=== PATIENT | female | born 1960 | race Caucasian/White ===

== ENCOUNTER 2017-07-20 10:28 | Outpatient (CLI) | payer SELFPAY | END 2017-07-20 10:29 | disposition home or self-care (01) | LOC: BICRAD 10:28 | PROVIDERS: ATTEND Internal Medicine | DX: M25.512 Pain in left shoulder (principal); M79.672 Pain in left foot; M19.012 Primary osteoarthritis, left shoulder; M19.072 Primary osteoarthritis, left ankle and foot ==

== ENCOUNTER 2017-08-11 09:02 | Outpatient (CLI) | payer SELFPAY | END 2017-08-11 09:03 | disposition home or self-care (01) | LOC: BICMAMMO 09:02 | PROVIDERS: ATTEND Internal Medicine | DX: Z12.31 Encounter for screening mammogram for malignant neoplasm of breast (principal) | CPT/HCPCS: 77063; 77067 ==

== ENCOUNTER 2018-08-23 10:38 | Outpatient (CLI) | payer BC ==
--- NOTE | 2018-08-23 11:19 | MMO ---
Bilateral MAMMO Bilat Screen [facility]. CLINICAL HISTORY: Patient is 58 years old and is seen for screening. The patient has no family history of breast cancer. The patient has no personal history of cancer. VIEWS: The views performed were: bilateral craniocaudal with tomosynthesis and bilateral mediolateral oblique with tomosynthesis. FILMS COMPARED: The present examination has been compared to prior imaging studies performed at [facility] on 08/11/2017, and at [facility] on 10/10/2012, 06/29/2013, 10/30/2013 and 01/09/2015. MAMMOGRAM FINDINGS: There are scattered fibroglandular densities. There are no suspicious masses, suspicious calcifications, or new areas of architectural distortion. IMPRESSION: THERE IS NO MAMMOGRAPHIC EVIDENCE OF MALIGNANCY. A ROUTINE FOLLOW-UP MAMMOGRAM IN 1 YEAR IS RECOMMENDED. THE RESULTS OF THIS EXAM WERE SENT TO THE PATIENT. ACR BI-RADS Category 1 - Negative MAMMOGRAPHY NOTE: 1. A negative mammogram report should not delay a biopsy if a dominant of clinically suspicious mass is present. 2. Approximately 10% to 15% of breast cancers are not detected by mammography. 3. Adenosis and dense breasts may obscure an underlying neoplasm.
== END 2018-08-23 10:39 | disposition home or self-care (01) ==
LOC: BICMAMMO 10:38
PROVIDERS: ATTEND Internal Medicine
DX: Z12.31 Encounter for screening mammogram for malignant neoplasm of breast (principal)
CPT/HCPCS: 77063; 77067

== ENCOUNTER 2019-04-27 01:51 | Emergency (ER) | payer BC ==
[2019-04-27] MEDS ORDERED: Proparacaine 0.5% Opth 15 ML BOT ONE (02:55)
[2019-04-27] MEDS ORDERED: Fluorescein Opthalmic Strip ONE (02:55)
== END 2019-04-27 03:48 | disposition home or self-care (01) ==
LOC: ERS 01:51
DX: H11.421 Conjunctival edema, right eye (principal); H10.11 Acute atopic conjunctivitis, right eye
CPT/HCPCS: 99283

== ENCOUNTER 2019-11-03 08:35 | Outpatient (CLI) | payer BC ==
--- NOTE | 2019-11-03 09:51 | MMO ---
Bilateral MAMMO Bilat Screen [facility]. CLINICAL HISTORY: Patient is 59 years old and is seen for screening. The patient has no family history of breast cancer. The patient has no personal history of cancer. VIEWS: The views performed were: bilateral craniocaudal with tomosynthesis and bilateral mediolateral oblique with tomosynthesis. FILMS COMPARED: The present examination has been compared to prior imaging studies performed at [facility] on 08/11/2017 and 08/23/2018, and at [facility] on 10/30/2013 and 01/09/2015. This study has been interpreted with the assistance of computer-aided detection. MAMMOGRAM FINDINGS: There are scattered fibroglandular densities. There are no suspicious masses, suspicious calcifications, or new areas of architectural distortion. IMPRESSION: THERE IS NO MAMMOGRAPHIC EVIDENCE OF MALIGNANCY. A ROUTINE FOLLOW-UP MAMMOGRAM IN 1 YEAR IS RECOMMENDED. THE RESULTS OF THIS EXAM WERE SENT TO THE PATIENT. ACR BI-RADS Category 1 - Negative MAMMOGRAPHY NOTE: 1. A negative mammogram report should not delay a biopsy if a dominant of clinically suspicious mass is present. 2. Approximately 10% to 15% of breast cancers are not detected by mammography. 3. Adenosis and dense breasts may obscure an underlying neoplasm. Reported by: JR RAMAN MD Electonically Signed: [id number]
== END 2019-11-03 08:36 | disposition home or self-care (01) ==
LOC: BICMAMMO 08:35
PROVIDERS: ATTEND Internal Medicine
DX: Z12.31 Encounter for screening mammogram for malignant neoplasm of breast (principal)
CPT/HCPCS: 77063; 77067

== ENCOUNTER 2021-01-22 15:52 | Outpatient (CLI) | payer BC | END 2021-01-22 15:53 | disposition home or self-care (01) | LOC: BICMAMMO 15:52 | PROVIDERS: ATTEND Internal Medicine | DX: Z12.31 Encounter for screening mammogram for malignant neoplasm of breast (principal) | CPT/HCPCS: 77063; 77067 ==

== ENCOUNTER 2021-10-15 08:50 | Outpatient (CLI) | payer BC | END 2021-10-15 08:51 | disposition home or self-care (01) | LOC: BICULT 08:50 | PROVIDERS: ATTEND Internal Medicine | DX: R10.13 Epigastric pain (principal) | CPT/HCPCS: 76700 ==

== ENCOUNTER 2021-10-23 07:58 | Outpatient (CLI) | payer BC | END 2021-10-23 07:59 | disposition home or self-care (01) | LOC: SCSMRI 07:58 | PROVIDERS: ATTEND Internal Medicine | DX: K83.8 Other specified diseases of biliary tract (principal) | CPT/HCPCS: 74181 ==

== ENCOUNTER 2021-11-07 13:22 | Outpatient (CLI) | payer BC | END 2021-11-07 13:23 | disposition home or self-care (01) | LOC: LABBT 13:22 | PROVIDERS: ATTEND Internal Medicine Gastroenterology | DX: K83.1 Obstruction of bile duct (principal); R10.13 Epigastric pain; R11.0 Nausea; Z20.822 Contact with and (suspected) exposure to COVID-19 | CPT/HCPCS: 87811 ==

== ENCOUNTER 2021-11-12 11:54 | Day surgery (SDC) | payer BC ==
[2021-11-11 10:00] VITALS: BMI 25.2
[2021-11-12] MEDS ORDERED: fentaNYL Citrate/PF 100 MCG/2 ML SYRINGE ONE (12:30)
[2021-11-12] MEDS ORDERED: Indomethacin 50 MG SUPP ONE (12:37)
[2021-11-12] MEDS ORDERED: Iopamidol 0 ML ONE (13:08)
== END 2021-11-12 14:57 | disposition home or self-care (01) ==
LOC: SDC 11:54
PROVIDERS: ATTEND Internal Medicine Gastroenterology
DX: K83.1 Obstruction of bile duct (principal); R11.0 Nausea; R10.13 Epigastric pain; Z53.9 Procedure and treatment not carried out, unspecified reason; Z79.899 Other long term (current) drug therapy
CPT/HCPCS: Q9967

== ENCOUNTER 2021-12-12 13:30 | Outpatient (CLI) | payer BC | END 2021-12-12 13:31 | disposition home or self-care (01) | LOC: LABBT 13:30 | PROVIDERS: ATTEND Internal Medicine Gastroenterology | DX: Z20.822 Contact with and (suspected) exposure to COVID-19 (principal) | CPT/HCPCS: 87811 ==

== ENCOUNTER 2021-12-15 07:57 | Day surgery (SDC) | payer BC ==
[2021-12-12 11:53] VITALS: BMI 25.2
[2021-12-15] MEDS ORDERED: Indomethacin 50 MG SUPP ONE (09:28)
[2021-12-15] MEDS ORDERED: Iopamidol 30 ML ONE (09:30)
[2021-12-15] MEDS ORDERED: Fentanyl 100 MCG/2 ML VIAL ONE ×2 (09:55)
[2021-12-15] MEDS ORDERED: Famotidine/PF 20 mg/2ml Vial ONE (09:55)
[2021-12-15] MEDS ORDERED: Dexamethasone 20 MG/5 ML VIAL ONE (10:18)
[2021-12-15] MEDS ORDERED: Ondansetron PF 4 MG/2 ML Vial ONE (10:18)
[2021-12-15] MEDS ORDERED: Lidocaine 1% MPF 2 ML VIAL ONE (10:18)
[2021-12-15] MEDS ORDERED: Glycopyrrolate 0.2 MG/ML 5 ML SYRINGE ONE (10:18)
[2021-12-15] MEDS ORDERED: Neostigmine Methylsulfate 3 MG/3 ML SYRINGE ONE (10:18)
[2021-12-15] MEDS ORDERED: Rocuronium Bromide 10 MG/ML (10ML VIAL) ONE (10:18)
[2021-12-15] MEDS ORDERED: PROPOFOL 200 MG/20 ML VIAL ONE (10:18)
== END 2021-12-15 13:38 | disposition home or self-care (01) ==
LOC: SDC 07:57
PROVIDERS: ATTEND Internal Medicine Gastroenterology
PROC: 0F798ZZ Dilation of Common Bile Duct, Via Natural or Artificial Opening Endoscopic (ICD-10-PCS; principal; 2021-12-15)
DX: K83.1 Obstruction of bile duct (principal); K21.9 Gastro-esophageal reflux disease without esophagitis; Z79.899 Other long term (current) drug therapy
CPT/HCPCS: 74330; J1100; J1610; J2405; J2704; J3010; Q9967; S0028

== ENCOUNTER 2022-02-12 13:42 | Outpatient (CLI) | payer BC | END 2022-02-12 13:43 | disposition home or self-care (01) | LOC: BICMAMMO 13:42 | PROVIDERS: ATTEND Internal Medicine | DX: Z12.31 Encounter for screening mammogram for malignant neoplasm of breast (principal) | CPT/HCPCS: 77063; 77067 ==

== ENCOUNTER 2022-06-01 22:15 | Inpatient (IN) | payer BC ==
[2022-06-01 22:58] LABS: Bacteria/HPF None Seen HPF (None Seen); Bilirubin Negative (Negative); Blood, Urine Negative (Negative); Clarity Clear (Clear); Glucose, Urine (Dipstick) Normal (Negative); Ketone, Urine Negative (Negative); Leukocyte 25 Leu/uL (Negative); Nitrite Negative (Negative); Protein, Urine (Dipstick) 10 mg/dL (Neg-Trace); RBC/HPF 0-3 HPF (0-3); Specific Gravity, Urine 1.031 (1.002-1.036); Squamous Epithelial 0-3 HPF (0-3); Urobilinogen Normal mg/dL (Less than 2); WBC/HPF 0-3 HPF (0-3); pH, Urine 5.5 (5.0-9.0)
[2022-06-01 23:22] LABS: #Basophils 0.1 thou/uL (0.0-0.2); #Eosinphils 0.1 thou/uL (0.0-0.7); #Lymphocytes 1.8 thou/uL (1.20-3.40); #Neutrophils 9.6 thou/uL (1.40-6.50); %Basophils 0.4 % (0.0-1.0); %Eosinophils 0.7 % (0.0-10.0); %Lymphocytes 14.4 % (21.0-51.0); %Monocytes 7.7 % (0.0-10.0); %Neutrophils 76.9 % (42.0-75.0); Hemoglobin 14.2 g/dL (12.0-16.0); Mean Corpuscular HGB CONC 33.8 g/dL (32.0-36.0); Mean Corpuscular Hemoglobin 32.2 pg (27.0-31.0); Mean Corpuscular Volume 95.3 fl (78.0-98.0); Mean Platelet Volume 8.2 fL (7.4-10.4); Platelet Count 181 10x3/uL (130-400); RBC Distribution Width 10.8 % (11.5-14.5); White Blood Cell (WBC) Count 12.5 10x3/uL (4.8-10.8)
[2022-06-01 23:44] LABS: ALT (SGPT) 15 U/L (8-55); AST (SGOT) 18 U/L (5-34); Albumin 4.2 g/dL (3.4-4.8); Alkaline Phosphatase 76 U/L (40-110); Anion Gap 16 mmol/L (10-20); BUN (Urea Nitrogen) 10 mg/dL (9.8-20.1); Bilirubin, Total 1.2 mg/dL (0.2-1.2); Calc. Creatinine Clearance 0 mL/min (70-130); Calcium 9.4 mg/dL (7.8-10.44); Carbon Dioxide 23 mmol/L (23-31); Chloride 101 mmol/L (98-107); Estimated GFR 70; Globulin 3.2 g/dL (2.4-3.5); Glucose 116 mg/dL (80-115); Lipase 12 U/L (8-78); Potassium 3.5 mmol/L (3.5-5.1); Protein, Total 7.4 g/dL (5.8-8.1); Sodium 136 mmol/L (136-145)
[2022-06-01] MEDS ORDERED: Morphine 4 MG/ML VIAL ONE (23:44)
[2022-06-01] MEDS ORDERED: Ondansetron PF 4 MG/2 ML Vial ONE (23:44)
[2022-06-02] MEDS ORDERED: Morphine 4 MG/ML VIAL ONE (01:02)
[2022-06-02] MEDS ORDERED: Ondansetron ODT 4 MG TAB PO PRN (02:45)
[2022-06-02] MEDS ORDERED: Bisacodyl 5 MG TAB PO PRN (02:45)
[2022-06-02] MEDS ORDERED: Senokot S 8.6-50 MG TAB PO PRN (02:45)
[2022-06-02] MEDS ORDERED: Dextrose 5 %-0.45 % NaCl 1,000 ML IV SCH (03:00)
[2022-06-02] MEDS ORDERED: HYDROcodone/Acetaminophen 5/325 mg Tablet ONE ×2 (03:25→12:10)
[2022-06-02] MEDS ORDERED: Ondansetron ODT 4 MG TAB ONE (03:25)
[2022-06-02 03:39] VITALS: BMI 22.9
[2022-06-02] MEDS: HYDROcodone/Acetaminophen 5/325 mg Tablet PO PRN ×2 (03:40→12:15)
[2022-06-02] MEDS ORDERED: Piperacillin/Tazobactam 3.375 GM VIAL ONE ×2 (07:01→14:59)
[2022-06-02] MEDS: Piperacillin/Tazobactam 3.375 GM in Sodium Chloride 0.9% 100 ML IVPB SCH ×2 (07:07→14:52)
[2022-06-02 07:30] LABS: #Lymphocytes 1.3 thou/uL (1.20-3.40); #Monocytes 0.7 thou/uL (0.11-0.59); #Neutrophils 13.2 thou/uL (1.40-6.50); %Basophils 0.1 % (0.0-1.0); %Eosinophils 0.2 % (0.0-10.0); %Lymphocytes 8.2 % (21.0-51.0); %Monocytes 4.5 % (0.0-10.0); %Neutrophils 86.9 % (42.0-75.0); Hemoglobin 14.8 g/dL (12.0-16.0); Mean Corpuscular HGB CONC 31.6 g/dL (32.0-36.0); Mean Corpuscular Hemoglobin 31.3 pg (27.0-31.0); Mean Corpuscular Volume 98.9 fl (78.0-98.0); Mean Platelet Volume 8.5 fL (7.4-10.4); Platelet Count 194 10x3/uL (130-400); RBC Distribution Width 10.9 % (11.5-14.5); Red Blood Cell (RBC) Count 4.72 mill/uL (4.20-5.40); White Blood Cell (WBC) Count 15.2 10x3/uL (4.8-10.8)
[2022-06-02 08:38] LABS: ALT (SGPT) 620 U/L (8-55); AST (SGOT) 876 U/L (5-34); Alkaline Phosphatase 112 U/L (40-110); Anion Gap 12 mmol/L (10-20); BUN (Urea Nitrogen) 8 mg/dL (9.8-20.1); Bilirubin, Total 2.6 mg/dL (0.2-1.2); Calc. Creatinine Clearance 77 mL/min (70-130); Calcium 8.9 mg/dL (7.8-10.44); Carbon Dioxide 22 mmol/L (23-31); Chloride 104 mmol/L (98-107); Estimated GFR 89; Globulin 2.8 g/dL (2.4-3.5); Glucose 149 mg/dL (80-115); Potassium 3.9 mmol/L (3.5-5.1); Protein, Total 6.8 g/dL (5.8-8.1); Sodium 134 mmol/L (136-145)
[2022-06-02 08:39] LABS: Band 30 % (5-11); Lymphocytes 7 % (21-51); MDiff Complete? YES; Monocytes 4 % (0-10); Neutrophil 59 % (42-75); RBC Morphology Normal
[2022-06-02] MEDS ORDERED: Famotidine 20 MG TAB ONE (09:43)
[2022-06-02] MEDS: Famotidine 20 MG TAB PO SCH ×2 (09:53→21:10)
[2022-06-02 13:09] LABS: SARS-CoV-2 NAA Rapid Test Not Detected (NotDetected)
[2022-06-02] MEDS ORDERED: Iopamidol 30 ML ONE (15:25)
[2022-06-02] MEDS ORDERED: Bupivacaine/Epinephrine 0.25% 30 ML VIAL ONE (15:25)
[2022-06-02] MEDS ORDERED: fentaNYL PF 100 MCG/2 ML SYRINGE ONE ×2 (15:42→17:16)
[2022-06-02] MEDS ORDERED: PHENYLEPHRINE-NS 100 MCG/ML 10 ML SYRINGE ONE (17:20)
[2022-06-02] MEDS ORDERED: Glycopyrrolate 0.2 MG/ML 5 ML SYRINGE ONE (17:20)
[2022-06-02] MEDS ORDERED: PROPOFOL 200 MG/20 ML VIAL ONE (17:20)
[2022-06-02] MEDS ORDERED: NEOSTIGMINE 3 MG/3 ML SYR 3 MG/3 ML SYRINGE ONE (17:20)
[2022-06-02] MEDS ORDERED: Rocuronium Bromide 10 MG/ML (10ML VIAL) ONE (17:20)
[2022-06-02] MEDS ORDERED: Succinylcholine Chloride 100 MG/5 ML SYRINGE FS ONE (17:20)
[2022-06-02] MEDS ORDERED: ePHEDrine 50 MG/ML VIAL ONE (17:20)
[2022-06-02] MEDS ORDERED: Lidocaine 1% PF 5 ML VIAL ONE (17:20)
[2022-06-02] MEDS ORDERED: Ketorolac Tromethamine 30 MG/ML VIAL ONE (17:20)
[2022-06-02] MEDS ORDERED: Ondansetron PF 4 MG/2 ML Vial ONE (17:20)
[2022-06-02] MEDS ORDERED: Dexamethasone 20 MG/5 ML VIAL ONE (17:20)
[2022-06-02] MEDS ORDERED: HYDROcodone/Acetaminophen 5/325 mg Tablet PO PRN (18:39)
[2022-06-02] MEDS ORDERED: Morphine 2 MG/ML VIAL SLOW IVP PRN (18:40)
[2022-06-02] MEDS ORDERED: Promethazine HCl 25 MG/ML VIAL IM PRN (18:41)
[2022-06-02] MEDS ORDERED: Ondansetron HCl/PF 4 MG/2 ML Vial IVP PRN (18:41)
[2022-06-02] MEDS: Dextrose 5 %-0.45 % NaCl 1,000 ML IV SCH (20:55)
[2022-06-02] MEDS ORDERED: traMADol HCl 50 MG TAB PO PRN (21:07)
[2022-06-02] MEDS ORDERED: Famotidine/PF 20 mg/2ml Vial ONE (21:07)
[2022-06-02] MEDS ORDERED: metroNIDAZOLE 500 MG/100 ML BAG ONE (21:56)
[2022-06-02] MEDS: metroNIDAZOLE 500 MG in Premix Bag 1 BAG IVPB SCH (22:00)
[2022-06-02] MEDS: traMADol HCl 50 MG TAB PO PRN (23:31)
[2022-06-03] MEDS: metroNIDAZOLE 500 MG in Premix Bag 1 BAG IVPB SCH ×2 (05:24→14:02)
[2022-06-03 07:23] LABS: #Lymphocytes 1.1 thou/uL (1.20-3.40); #Monocytes 0.4 thou/uL (0.11-0.59); #Neutrophils 10.9 thou/uL (1.40-6.50); %Eosinophils 0.2 % (0.0-10.0); %Lymphocytes 8.6 % (21.0-51.0); %Monocytes 3.5 % (0.0-10.0); %Neutrophils 87.7 % (42.0-75.0); Hemoglobin 11.4 g/dL (12.0-16.0); Mean Corpuscular HGB CONC 32.7 g/dL (32.0-36.0); Mean Corpuscular Hemoglobin 32.1 pg (27.0-31.0); Mean Corpuscular Volume 98.2 fl (78.0-98.0); Mean Platelet Volume 8.6 fL (7.4-10.4); Platelet Count 147 10x3/uL (130-400); Red Blood Cell (RBC) Count 3.54 mill/uL (4.20-5.40); White Blood Cell (WBC) Count 12.4 10x3/uL (4.8-10.8)
[2022-06-03 07:34] LABS: ALT (SGPT) 359 U/L (8-55); AST (SGOT) 172 U/L (5-34); Albumin 3.2 g/dL (3.4-4.8); Alkaline Phosphatase 83 U/L (40-110); Anion Gap 10 mmol/L (10-20); BUN (Urea Nitrogen) 10 mg/dL (9.8-20.1); Bilirubin, Total 1.3 mg/dL (0.2-1.2); Calc. Creatinine Clearance 78 mL/min (70-130); Calcium 8.6 mg/dL (7.8-10.44); Carbon Dioxide 23 mmol/L (23-31); Chloride 107 mmol/L (98-107); Estimated GFR 91; Globulin 2.7 g/dL (2.4-3.5); Glucose 143 mg/dL (80-115); Lipase 4 U/L (8-78); Protein, Total 5.9 g/dL (5.8-8.1); Sodium 136 mmol/L (136-145)
[2022-06-03] MEDS: Famotidine 20 MG TAB PO SCH (08:06)
[2022-06-03 08:17] VITALS: BP 113/66; TEMP 97.1
[2022-06-03] MEDS: traMADol HCl 50 MG TAB PO PRN (10:53)
[2022-06-03] MEDS: Dextrose 5 %-0.45 % NaCl 1,000 ML IV SCH (13:55)
[2022-06-05] MEDS ORDERED: FLU VACC QS2022-23(6MOS UP)/PF 60 MCG/0.5 ML SYRINGE IM ONE (09:00)
== END 2022-06-03 17:03 | disposition home or self-care (01) | DRG 854 ==
LOC: ERS 22:15 → ERHOLD 06-02 02:05 → SURG B 06-02 15:25 → T4-B 06-02 23:26
PROVIDERS: ADMIT Student in an Organized Health Care Education/Training Program; ATTEND Internal Medicine
PROC: 0FT44ZZ Resection of Gallbladder, Percutaneous Endoscopic Approach (ICD-10-PCS; principal; 2022-06-02)
PROC: BF101ZZ Fluoroscopy of Bile Ducts using Low Osmolar Contrast (ICD-10-PCS; 2022-06-02)
DX: A41.50 Gram-negative sepsis, unspecified (principal); K81.0 Acute cholecystitis; Z20.822 Contact with and (suspected) exposure to COVID-19; K82.A1 Gangrene of gallbladder in cholecystitis; Z79.899 Other long term (current) drug therapy; Z98.890 Other specified postprocedural states
CPT/HCPCS: 36415; 36416; 47532; 76705; 80053; 81003; 81015; 83690; 85025; 86141; 87070; 87077; 87186; 87205; 88304; 96374; 96375; 96376; C1713; J0744; J1100; J1611; J1885; J2270; J2405; J2543; J2704; J3490; J7042; Q0162; Q9967; S0028; U0002